=== PATIENT | female | born 1955 ===

== ENCOUNTER 2022-08-29 15:30 | Inpatient (IN) | payer MEDICARE ==
[2022-08-31 09:49] VITALS: BMI 32.2
[2022-09-03] MEDS ORDERED: Bupivacaine HCl 0.5%/Epinephrine 1:200,000/PF 30 ml Vial ONE (06:11)
[2022-09-03] MEDS ORDERED: Vancomycin 1 GM VIAL ONE (06:11)
[2022-09-03] MEDS ORDERED: Neomycin-Polymyxin 1 ML AMP ONE (06:11)
[2022-09-03] MEDS ORDERED: Thrombin 5000 UNITS/5 ML VIAL ONE (06:11)
[2022-09-03] MEDS ORDERED: Fentanyl 250 MCG/5 ML VIAL ONE (06:36)
[2022-09-03] MEDS ORDERED: MINERAL OIL/WHITE PETROLATUM 3.5 GM TUBE ONE (06:36)
[2022-09-03] MEDS ORDERED: SUGAMMADEX SODIUM 200 MG/2 ML VIAL ONE (06:36)
[2022-09-03] MEDS ORDERED: CEFAZOLIN 2 GM VIAL ONE (06:42)
[2022-09-03] MEDS ORDERED: Sodium Chloride 0.9% 100 ML ONE (06:42)
[2022-09-03] MEDS ORDERED: PHENYLEPHRINE-NS 100 MCG/ML 10 ML SYRINGE ONE ×2 (06:48→07:05)
[2022-09-03] MEDS ORDERED: Phenylephrine 10 MG/ML VIAL ONE (06:48)
[2022-09-03 06:53] LABS: SARS-CoV-2 NAA Rapid Test Not Detected (NotDetected)
[2022-09-03] MEDS ORDERED: Ketamine 50 MG/ML (10ML VIAL) ONE (06:55)
[2022-09-03] MEDS ORDERED: PROPOFOL 200 MG/20 ML VIAL ONE (07:05)
[2022-09-03] MEDS ORDERED: Milk Of Magnesia 30 ML UDCUP PO PRN (07:05)
[2022-09-03] MEDS ORDERED: Rocuronium Bromide 10 MG/ML (10ML VIAL) ONE (07:05)
[2022-09-03] MEDS ORDERED: Ondansetron PF 4 MG/2 ML Vial ONE (07:05)
[2022-09-03] MEDS ORDERED: Dexamethasone 20 MG/5 ML VIAL ONE (07:05)
[2022-09-03] MEDS ORDERED: Lidocaine 1% PF 5 ML VIAL ONE (07:05)
[2022-09-03] MEDS ORDERED: Ondansetron PF 4 MG/2 ML Vial IVP PRN (07:05)
[2022-09-03] MEDS ORDERED: Mag-Al 1200 mg/1200 mg/30 ML UDCUP PO PRN (07:05)
[2022-09-03] MEDS ORDERED: Ketorolac Tromethamine 30 MG/ML VIAL ONE (07:05)
[2022-09-03] MEDS ORDERED: diphenhydrAMINE 50 MG/ML VIAL IVP PRN (07:05)
[2022-09-03] MEDS ORDERED: Acetaminophen 325 MG TAB PO PRN (07:05)
[2022-09-03] MEDS ORDERED: Non-Formulary Item 1 EACH (Losartan Potassium [Cozaar] 50 MG Tab) PO SCH (09:00)
[2022-09-03] MEDS ORDERED: Rocuronium Bromide 50 MG/5 ML VIAL ONE (11:25)
[2022-09-03] MEDS ORDERED: HYDROmorphone 2 MG/ML VIAL SLOW IVP PRN (12:59)
[2022-09-03] MEDS ORDERED: Promethazine HCl 25 MG/ML VIAL IM PRN (12:59)
[2022-09-03] MEDS ORDERED: Meperidine HCl/PF 25 MG/ML VIAL SLOW IVP PRN (12:59)
[2022-09-03] MEDS ORDERED: Ondansetron HCl/PF 4 MG/2 ML Vial IVP PRN (12:59)
[2022-09-03] MEDS ORDERED: fentaNYL PF 100 MCG/2 ML SYRINGE ONE ×2 (13:08→13:55)
[2022-09-03] MEDS ORDERED: CEFAZOLIN 2 GM in Sodium Chloride 0.9% 100 ML IVPB SCH (14:00)
[2022-09-03] MEDS: Sodium Chloride 0.9% 1,000 ML IV SCH ×2 (15:29→21:55)
[2022-09-03] MEDS: Gabapentin 300 MG CAP PO SCH ×2 (15:29→21:59)
[2022-09-03] MEDS: Losartan 25 MG TAB PO SCH (15:29)
[2022-09-03] MEDS: HYDROcodone/Acetaminophen 10/325 mg Tablet PO PRN ×2 (18:30→21:56)
[2022-09-03] MEDS ORDERED: DILTIAZEM HCL 240 MG PO SCH (21:00)
[2022-09-03] MEDS: CEFAZOLIN 2 GM in Sodium Chloride 0.9% 100 ML IVPB SCH (21:53)
[2022-09-04] MEDS: HYDROcodone/Acetaminophen 10/325 mg Tablet PO PRN (03:48)
[2022-09-04] MEDS: tiZANidine HCl 4 MG TAB PO PRN ×2 (03:48→23:41)
[2022-09-04] MEDS: CEFAZOLIN 2 GM in Sodium Chloride 0.9% 100 ML IVPB SCH (03:52)
[2022-09-04] MEDS: Losartan 25 MG TAB PO SCH (09:15)
[2022-09-04] MEDS: Gabapentin 300 MG CAP PO SCH ×2 (09:15→21:51)
[2022-09-04] MEDS: Sodium Chloride 0.9% 1,000 ML IV SCH ×2 (09:57→23:15)
[2022-09-04] MEDS ORDERED: Sodium Chloride 0.9% 500 ML IV SCH (11:30)
[2022-09-04] MEDS: Acetaminophen/Codeine 30-300mg Tablet PO PRN (12:08)
[2022-09-04] MEDS: HYDROcodone/Acetaminophen 7.5/325 mg Tablet PO PRN ×2 (16:34→21:53)
[2022-09-04 17:12] LABS: #Lymphocytes 2.2 thou/uL (1.20-3.40); #Monocytes 1.3 thou/uL (0.11-0.59); #Neutrophils 11.5 thou/uL (1.40-6.50); %Basophils 0.1 % (0.0-1.0); %Eosinophils 0.1 % (0.0-10.0); %Lymphocytes 14.8 % (21.0-51.0); %Monocytes 8.5 % (0.0-10.0); %Neutrophils 76.6 % (42.0-75.0); Hemoglobin 10.5 g/dL (12.0-16.0); Mean Corpuscular HGB CONC 33.8 g/dL (32.0-36.0); Mean Corpuscular Hemoglobin 31.6 pg (27.0-31.0); Mean Corpuscular Volume 93.4 fl (78.0-98.0); Mean Platelet Volume 9.1 fL (7.4-10.4); Platelet Count 207 10x3/uL (130-400); RBC Distribution Width 12.2 % (11.5-14.5); Red Blood Cell (RBC) Count 3.33 mill/uL (4.20-5.40); White Blood Cell (WBC) Count 15.1 10x3/uL (4.8-10.8)
[2022-09-04 17:29] LABS: Anion Gap 10 mmol/L (10-20); BUN (Urea Nitrogen) 15 mg/dL (9.8-20.1); Calc. Creatinine Clearance 90 mL/min (70-130); Calcium 8.4 mg/dL (7.8-10.44); Carbon Dioxide 29 mmol/L (23-31); Chloride 103 mmol/L (98-107); Estimated GFR 94; Glucose 95 mg/dL (80-115); Potassium 3.6 mmol/L (3.5-5.1); Sodium 138 mmol/L (136-145)
[2022-09-05] MEDS: HYDROcodone/Acetaminophen 7.5/325 mg Tablet PO PRN ×2 (05:57→16:42)
[2022-09-05] MEDS: tiZANidine HCl 4 MG TAB PO PRN ×2 (05:57→18:57)
[2022-09-05] MEDS: Sodium Chloride 0.9% 1,000 ML IV SCH (05:57)
[2022-09-05] MEDS: Gabapentin 300 MG CAP PO SCH ×2 (09:18→19:52)
[2022-09-05 10:56] LABS: Actual Bicarbonate (HCO3a) 21.7 mEq/L (22-28); Analyzer IN Cardio OR; Base Excess (BEa) -2.8 mEq/L (-2.0 to +3.0); CO2 Tension 36.6 mmHg (35.0-45.0); Calcium, Ionized (arterial) 1.09 mmol/L (1.12-1.30); Carboxyhemoglobin (COHb) 0.6 gm% (0.0-3.0); Hemoglobin (Hb) 11.7 g/dL (12.0-16.0); O2 Tension (PaO2), arterial 246.2 mmHg (> 80.0); Potassium - ABG Lab 4.09 mmol/L (3.70-5.30); pH, Arterial 7.39 (7.35-7.45)
[2022-09-05 10:57] LABS: Puncture Site Arterial Line
[2022-09-05] MEDS: Acetaminophen/Codeine 30-300mg Tablet PO PRN ×2 (11:31→19:52)
[2022-09-05 17:41] LABS: Bacteria/HPF None Seen HPF (None Seen); Bilirubin Negative (Negative); Blood, Urine Negative (Negative); CAUTI Indications for Culture Fever or rigors; Clarity Clear (Clear); Glucose, Urine (Dipstick) Normal (Negative); Ketone, Urine Negative (Negative); Leukocyte Negative Leu/uL (Negative); Nitrite Negative (Negative); Protein, Urine (Dipstick) Negative (Neg-Trace); RBC/HPF 0-3 HPF (0-3); Specific Gravity, Urine 1.012 (1.002-1.036); Squamous Epithelial 0-3 HPF (0-3); Urobilinogen Normal mg/dL (Less than 2); WBC/HPF 0-3 HPF (0-3)
[2022-09-05 17:51] LABS: Urine Culture Reflex No No
[2022-09-06] MEDS: Sodium Chloride 0.9% 1,000 ML IV SCH (01:05)
[2022-09-06] MEDS: HYDROcodone/Acetaminophen 7.5/325 mg Tablet PO PRN ×2 (03:48→16:52)
[2022-09-06] MEDS: Gabapentin 300 MG CAP PO SCH (07:52)
[2022-09-06] MEDS: Acetaminophen/Codeine 30-300mg Tablet PO PRN (07:52)
[2022-09-06] MEDS: tiZANidine HCl 4 MG TAB PO PRN (11:26)
[2022-09-06 15:37] VITALS: BP 111/66; TEMP 98.4
[2022-09-06] MEDS ORDERED: FLU VACC QS2022-23(65YR UP)/PF 240 MCG/0.7 ML SYRINGE IM ONE (20:15)
== END 2022-09-06 18:20 | disposition home health service (06) | DRG 453 ==
LOC: SURG A 09-03 05:43 → SJJU 09-03 14:33
PROVIDERS: ADMIT Neurological Surgery; ATTEND Neurological Surgery
PROC: 0SG00AJ Fusion of Lumbar Vertebral Joint with Interbody Fusion Device, Posterior Approach, Anterior Column, Open Approach (ICD-10-PCS; principal; 2022-09-03)
PROC: 0SG0071 Fusion of Lumbar Vertebral Joint with Autologous Tissue Substitute, Posterior Approach, Posterior Column, Open Approach (ICD-10-PCS; 2022-09-03)
PROC: 0SB20ZZ Excision of Lumbar Vertebral Disc, Open Approach (ICD-10-PCS; 2022-09-03)
PROC: 01NB0ZZ Release Lumbar Nerve, Open Approach (ICD-10-PCS; 2022-09-03)
DX: M48.062 Spinal stenosis, lumbar region with neurogenic claudication (principal); J18.9 Pneumonia, unspecified organism; M43.16 Spondylolisthesis, lumbar region; Z20.822 Contact with and (suspected) exposure to COVID-19; Z88.5 Allergy status to narcotic agent; Z79.899 Other long term (current) drug therapy
CPT/HCPCS: 36415; 36416; 71045; 80048; 81001; 82805; 85025; 86850; 86900; 86901; 87040; 87070; 87205; 93970; C1713; C1768; C1776; C1889; J1100; J1885; J1956; J2370; J2405; J2704; J3010; J3370; J3490; J7050; U0002

== ENCOUNTER 2022-08-29 15:34 | Outpatient (CLI) | payer MEDICARE ==
[2022-08-29 16:29] LABS: Mean Corpuscular HGB CONC 33.4 g/dL (32.0-36.0); Mean Corpuscular Hemoglobin 29.9 pg (27.0-33.0); Mean Corpuscular Volume 89.4 fl (81.6-98.3); Mean Platelet Volume 11.3 fl (7.4-10.4); Platelet Count 305 10x3/uL (150-450); RBC Distribution Width 13.1 % (11.5-14.5); Red Blood Cell (RBC) Count 4.35 10x6/uL (3.90-5.03); White Blood Cell (WBC) Count 9.7 10x3/uL (3.5-10.5)
[2022-08-29 16:43] LABS: INR-International Normal Ratio 0.9; PTT 25.2 sec (22.0-33.0)
== END 2022-08-29 15:35 | disposition home or self-care (01) ==
LOC: LABBT 15:34
PROVIDERS: ATTEND Neurological Surgery
DX: Z01.812 Encounter for preprocedural laboratory examination (principal); M48.061 Spinal stenosis, lumbar region without neurogenic claudication; M43.16 Spondylolisthesis, lumbar region
CPT/HCPCS: 85027; 85610; 85730